=== PATIENT | male | born 1975 | race Caucasian/White ===

== ENCOUNTER 2017-07-18 16:58 | Inpatient (IN) | payer OTHER ==
[~2017-07-18] VITALS: Ht 177.8 cm; Wt 125.2 kg
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
[2017-07-18] MEDS ORDERED: SODIUM CHLORIDE 0.9% 1000ML 1,000 ML IV STA (21:59)
[2017-07-18] MEDS ORDERED: HYDROCODONE/APAP 5MG-325MG TAB PO ONE (22:30)
[2017-07-18 22:43] LABS: BASOPHILS # (AUTO) 0.1 (0.0-0.1); BASOPHILS % 0.7 % (0.0-1.0); EOSINOPHILS # (AUTO) 0.2 (0.0-0.4); HEMATOCRIT 48.6 % (38.2-49.6); LYMPHOCYTES # (AUTO) 2.6 (1.0-3.2); LYMPHOCYTES % 24.9 % (18.0-39.1); MEAN CORPUSCULAR HEMOGLOBIN 29.1 pg (28-32); MEAN CORPUSCULAR VOLUME 83.1 fL (81-99); MONOCYTES # (AUTO) 0.8 (0.2-0.8); MONOCYTES % 7.7 % (4.4-11.3); NEUTROPHILS # (AUTO) 6.7 (2.1-6.9); PLATELET COUNT 204 x10e3/uL (140-360); RED BLOOD COUNT 5.85 x10e6/uL (4.3-5.7); RED CELL DISTRIBUTION WIDTH 11.9 % (11.7-14.4)
[2017-07-18 22:52] LABS: INR 0.86; PROTHROMBIN TIME 12.1 seconds (11.9-14.5)
[2017-07-18 22:53] LABS: PARTIAL THROMBOPLASTIN TIME 26.1 seconds (23.8-35.5)
[2017-07-18 23:02] LABS: ALANINE AMINOTRANSFERASE 24 IU/L (0-55); ALBUMIN 3.8 g/dL (3.5-5.0); ALBUMIN/GLOBULIN RATIO 0.9 (0.8-2.0); ALKALINE PHOSPHATASE 109 IU/L (40-150); ANION GAP 14.6 mmol/L (8-16); BLOOD UREA NITROGEN 15 mg/dL (7-26); BUN/CREATININE RATIO 16 (6-25); CALCIUM 9.6 mg/dL (8.4-10.2); CARBON DIOXIDE 26 mmol/L (22-29); CHLORIDE 101 mmol/L (98-107); CREATININE, SERUM 0.93 mg/dL (0.72-1.25); EST GLOMERULAR FILTRATION RATE > 60 ML/MIN (60-); GLUCOSE 367 mg/dL (74-118); POTASSIUM 3.6 mmol/L (3.5-5.1); SODIUM 138 mmol/L (136-145)
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
[2017-07-19] MEDS ORDERED: SODIUM CHLORIDE 0.9% 1000ML 1,000 ML IV SCH (00:27)
[2017-07-19] MEDS ORDERED: ONDANSETRON HCL INJ 2 MG/ML VIAL IV PRN (00:30)
[2017-07-19] MEDS ORDERED: CLONIDINE HCL 0.1 MG TAB PO ONE (00:30)
[2017-07-19] MEDS ORDERED: DEXTROSE 50% SYRINGE 50 ML IV PRN ×2 (00:30→07:30)
[2017-07-19] MEDS ORDERED: MORPHINE SULFATE 2 MG/ML SYR IV PRN (00:30)
[2017-07-19] MEDS ORDERED: VANCOMYCIN 1GM/NS 250 ML 250 ML IV SCH ×2 (01:00→14:00)
[2017-07-19 01:29] LABS: BILIRUBIN,URINE NEGATIVE (NEGATIVE); KETONES,URINE NEGATIVE (NEGATIVE); LEUKOCYTE ESTERASE ,URINE 2+ (NEGATIVE); NITRITE,URINE NEGATIVE (NEGATIVE); URINE UROBILINOGEN 0.2 mg/dL (0.2 - 1)
[2017-07-19 01:32] LABS: CLARITY,URINE CLOUDY (CLEAR); COLOR,URINE YELLOW (YELLOW); PROTEIN,URINE DIPSTICK 2+ (NEGATIVE)
[2017-07-19 01:37] LABS: BACTERIA,URINE MANY /HPF; EPITHELIAL CELLS,URINE FEW /LPF; WBC,URINE (MAN) >50 /HPF (0-5)
[2017-07-19] MEDS: PIPER-TAZ 3.375 GM 50 ML IV SCH ×4 (01:49→18:00)
[2017-07-19] MEDS ORDERED: IOPAMIDOL 370 MG/ML 200 ML INFUS..BTL INJ ONE (02:11)
[2017-07-19] MEDS ORDERED: SODIUM CHLORIDE 0.9% 50ML 50 ML ONE (02:11)
[2017-07-19] MEDS ORDERED: INSULIN REGULAR, HUMAN 100 UNIT/1 ML 3ML VIAL SQ SCH (07:30)
[2017-07-19] MEDS: MORPHINE SULFATE 2 MG/ML SYR IV PRN ×2 (07:35→12:21)
[2017-07-19] MEDS: ONDANSETRON HCL INJ 2 MG/ML VIAL IV PRN ×2 (08:32→12:22)
[2017-07-19] MEDS: INSULIN REGULAR, HUMAN 100 UNIT/1 ML 3ML VIAL SQ SCH ×4 (09:25→21:18)
[2017-07-19] MEDS: SODIUM CHLORIDE 0.9% 1000ML 1,000 ML IV SCH ×3 (09:45→23:48)
--- NOTE | 2017-07-19 16:55 | Consultation ---
DATE OF CONSULTATION: July 19, 2017 CHIEF COMPLAINT: Right breast pain. HPI: The patient is a 42-year-old male with 5-day history of right breast swelling, redness and tenderness with subjective fever but no chills. No nausea or vomiting. The patient had no previous episode. PAST MEDICAL HISTORY: Positive for diabetes. ALLERGIES: NO KNOWN DRUG ALLERGIES. SOCIAL HABITS: He does not smoke or drink. PAST SURGICAL HISTORY: Negative. PHYSICAL EXAMINATION VITALS: Stable, afebrile. GENERAL: Patient is awake, alert, in moderate discomfort. HEENT: Sclerae are nonicteric. NECK: Supple. LUNGS: Clear to auscultation. HEART: Regular rate and rhythm with no murmurs. ABDOMEN: Soft, nontender. RIGHT BREAST: Tender behind the left nipple with a palpable mass approximately 4 cm, which is tender to touch. CT scan showed retroareolar abscess. ASSESSMENT: Right breast abscess. PLAN: Incision and drainage under anesthesia. Attendant risks discussed. Job#: [id number]
[2017-07-19] MEDS ORDERED: BUPIVACAINE 0.25% 30ML SDV INJ ONE (16:57)
[2017-07-19] MEDS ORDERED: BACITRACIN 50,000 UNIT VIAL ONE (16:58)
[2017-07-19] MEDS ORDERED: PROPOFOL IV EMULSION 10 MG/ML 20 ML VIAL ONE (17:56)
[2017-07-19] MEDS ORDERED: ONDANSETRON HCL INJ 2 MG/ML VIAL ONE (17:56)
[2017-07-19] MEDS ORDERED: SEVOFLURANE INHAL SOLN 250 ML PEN BTL ONE (17:56)
[2017-07-19] MEDS ORDERED: LIDOCAINE HCL 2% LOCAL INJ 5 ML SDV VIAL INJ ONE (17:56)
[2017-07-19] MEDS ORDERED: MIDAZOLAM HCL 2 MG/2 ML VIAL ONE (18:33)
[2017-07-19] MEDS ORDERED: FENTANYL CITRATE/PF 100MCG/2 ML INJ ONE (18:33)
[2017-07-19] MEDS ORDERED: MORPHINE SULFATE 5 MG/ML VIAL ONE (18:36)
[2017-07-19] MEDS ORDERED: ENALAPRILAT IV INJ 1.25 MG/ML VIAL IV PRN (18:45)
[2017-07-19] MEDS ORDERED: LACTATED RINGER'S 1,000 ML IV ONE (18:45)
[2017-07-19] MEDS ORDERED: ACETAMINOPHEN/CODEINE 300MG - 30MG TAB PO PRN (18:45)
[2017-07-19] MEDS ORDERED: MORPHINE SULFATE 5 MG/ML VIAL IV PRN (18:45)
[2017-07-19 20:30] VITALS: BP 170/96
[2017-07-19] MEDS: MORPHINE SULFATE 5 MG/ML VIAL IV PRN (23:49)
[2017-07-20] VITALS (7 sets, daily range): BP systolic 131–168; BP diastolic 73–98
[2017-07-20] MEDS ORDERED: HYDRALAZINE HCL 20 MG/ML VIAL IV PRN
[2017-07-20] MEDS: PIPER-TAZ 3.375 GM 50 ML IV SCH ×4 (00:25→18:18)
--- NOTE | 2017-07-20 01:35 | History and Physical ---
CHIEF COMPLAINT: Right breast abscess. HISTORY: This is a 42-year-old male with a 5-day history of right breast swelling, redness, and tenderness that developed into an abscess. The patient has fever, but no chills. He has no nausea or vomiting. The patient has no previous episode. Apparently, he has diabetes type 2 for the past years or so, he is noncompliant due to financial restraint. Patient is now developing infection and therefore he came to the emergency room for evaluation. PAST MEDICAL HISTORY: Diabetes, noncompliant. SURGICAL HISTORY: Noncontributory. SOCIAL HISTORY: Patient does not smoke or use alcohol. No recreational drug use. ALLERGIES: NO KNOWN ALLERGIES. HOME MEDICATIONS: None. REVIEW OF SYSTEMS: Right breast pain, swelling, redness. PHYSICAL EXAMINATION: VITAL SIGNS: Temperature is 100, blood pressure 195/94, pulse rate 101, respirations 18. GENERAL: The patient is well nourished and obese. HEENT: Normocephalic, atraumatic. Sclerae anicteric. NECK: Grossly supple. No JVD, carotid bruit, or lymphadenopathy. PULMONARY: Diminished breath sounds bilaterally without any gross wheezes or rales. CARDIOVASCULAR: S1 and S2. Regular rate and rhythm. ABDOMEN: Soft, obese. EXTREMITIES: No cyanosis or edema. NEURO No focal deficit. Right breast abscess, redness, and induration of the nipple. There is phlegmon. Tender to touch. LABORATORY: WBC is 10.4, hemoglobin 17, hematocrit 49, platelets 204,000. Chemistry: Sodium is 138, potassium 3.6, chloride 101, bicarb 26, BUN is 15, creatinine 0.9, glucose is 367. Urinalysis, 2+ leukocyte esterase, greater than 50 WBCs. Coagulation normal. IMAGING: The chest CT scan showed 3 cm right breast retroareolar abscess. IMPRESSION: 1. A 3 cm right breast retroareolar abscess. 2. Uncontrolled diabetes type 2, requiring insulin treatment. 3. Morbid obesity. 4. Hypertension. PLAN: Continue with antibiotics. Consultation with surgery. The patient will need abscess of the breast drainage. Patient is otherwise stable at this time. Will continue antibiotics and monitor the patient closely. Job#: [id number]
--- NOTE | 2017-07-20 01:47 | Operative Report ---
DATE OF PROCEDURE: July 19, 2017 PREOPERATIVE DIAGNOSIS: Right breast abscess. POSTOPERATIVE DIAGNOSIS: Right breast abscess. OPERATIVE PROCEDURE: Incisional drainage of right breast abscess. BAR TACKER SEWING MACHINE: None. ANESTHESIA: General endotracheal. INDICATIONS: A 42-year-old male with 5-day history of right breast swelling and tenderness with abscess seen on CT of the chest. Patient consented for incision and drainage with all attendant risks discussed. PROCEDURE FINDINGS: Large right retroareolar breast abscess. DESCRIPTION: The patient brought to the OR intubated. The right chest is prepped with alcohol and draped in sterile fashion. Local anesthesia of 0.5% Marcaine injected into the projected site of incisional drainage. A 3-cm incision is made approximately from 6 to 9 o'clock position just below the areolar border extending through skin and subcutaneous tissue. With blunt and sharp dissection, the abscess cavity is entered and a large amount of purulent fluid is encountered and specimen obtained for culture and sensitivity. The cavity is further explored using hemostat to break up all loculations, and the cavity is then irrigated and packed with iodoform gauze. Hemostasis achieved. Dressing applied. The patient tolerated the procedure well, extubated, and transported to recovery room in guarded condition. ESTIMATED BLOOD LOSS: 5 mL. Job#: [id number]
[2017-07-20] MEDS: VANCOMYCIN 1GM/NS 250 ML 250 ML IV SCH ×2 (02:59→15:00)
[2017-07-20] MEDS: AMLODIPINE BESYLATE 10 MG TAB PO SCH (08:00)
[2017-07-20] MEDS: MORPHINE SULFATE 5 MG/ML VIAL IV PRN ×3 (08:01→19:37)
[2017-07-20] MEDS: INSULIN REGULAR, HUMAN 100 UNIT/1 ML 3ML VIAL SQ SCH ×4 (08:08→21:16)
[2017-07-20] MEDS: INS LISP PRO/LISP HUMAN 75/25 100 UNITS/ML VIAL SC SCH ×2 (08:15→18:24)
[2017-07-20] MEDS: METFORMIN HCL 850 MG TAB PO SCH ×2 (08:30→17:56)
[2017-07-20] MEDS: LISINOPRIL 10 MG TAB PO SCH (13:09)
[2017-07-21] VITALS: BP 131/77
[2017-07-21] MEDS: VANCOMYCIN 1GM/NS 250 ML 250 ML IV SCH (03:43)
[2017-07-21] MEDS: MORPHINE SULFATE 5 MG/ML VIAL IV PRN ×2 (03:50→09:40)
[2017-07-21 04:00] VITALS: BP 113/79
[2017-07-21] MEDS: PIPER-TAZ 3.375 GM 50 ML IV SCH ×3 (05:26→12:13)
[2017-07-21] MEDS: INSULIN REGULAR, HUMAN 100 UNIT/1 ML 3ML VIAL SQ SCH ×2 (07:30→12:13)
[2017-07-21 07:45] VITALS: BP 113/79
[2017-07-21 08:17] VITALS: BP 136/74
[2017-07-21] MEDS: METFORMIN HCL 850 MG TAB PO SCH (08:33)
[2017-07-21] MEDS: INS LISP PRO/LISP HUMAN 75/25 100 UNITS/ML VIAL SC SCH (08:34)
[2017-07-21] MEDS: AMLODIPINE BESYLATE 10 MG TAB PO SCH (08:34)
[2017-07-21] MEDS: LISINOPRIL 10 MG TAB PO SCH (08:35)
[2017-07-21 11:49] VITALS: BP 155/76
[2017-07-21] MEDS ORDERED: METFORMIN HCL850 MG PO (12:56)
[2017-07-21] MEDS ORDERED: NORVASC5 MG PO (12:57)
[2017-07-21] MEDS ORDERED: LISINOPRIL10 MG PO (12:57)
[2017-07-21] MEDS ORDERED: HUMULIN 70100 UNIT/1 SQ (12:59)
[2017-07-21] MEDS ORDERED: HUMULIN 70100 UNIT/1 SC (13:00)
[2017-07-21] MEDS ORDERED: CIPRO500 MG PO (13:01)
[2017-07-21] MEDS ORDERED: KEFLEX500 MG PO (13:01)
[2017-07-21] MEDS ORDERED: TYLENOL WITH C1 EACH PO (13:02)
[2017-07-21] MEDS ORDERED: CELEBREX50 MG PO (13:03)
[2017-07-21] MEDS ORDERED: ZOFRAN ODT4 MG PO (13:04)
--- NOTE | 2017-07-21 15:03 | Discharge Summary ---
CONSULTANTS: Dr. Solomon Downs. FINAL DIAGNOSES 1. Right breast abscess, status post incision and drainage. 2. Diabetes type 2 associated with uncontrolled diabetes, glycohemoglobin A1c 11.9 associated with obesity, insulin resistant. 3. Uncontrolled hypertension. 4. Right breast abscess with Citrobacter koseri. SUMMARY: Patient is a 42-year-old male who came in with right breast abscess. The patient status post incision and drainage done to the right breast with packing. Packing instructions given. The patient also has uncontrolled diabetes type 2, glycohemoglobin A1c of 11.9. Patient has not received treatment thoroughly. Matter of fact he was noncompliant because of financial restraint, but now he does have insurance with [employer]. The patient will seek for medical management. He also has uncontrolled blood pressure as well. Currently, the patient is stable. He has received all the education needed. He will go home with the following medications: 1. Cipro 500 mg b.i.d. for 10 days. 2. Keflex 500 mg t.i.d. for 10 days. 3. Tylenol No. 3 for pain. 4. Celebrex 100 mg b.i.d. for 15 days for pain and inflammation. 5. Zofran ODT 4 mg sublingual p.r.n. 6. Metformin 850 mg twice a day, I gave the patient 1 month and he needs to follow up for any refill. 7. Norvasc 10 mg daily. 8. Lisinopril 10 mg daily. 9. Humulin 70/30, 35 units before breakfast and 30 units before supper, giving 3 vials. He also received insulin syringes with needle. The patient is instructed clearly that he needs to follow up with Dr. Downs next week and with a primary care physician of his choice or he can follow me, but he needs to call my office for insurance verification. The patient is stable, discharged home. Follow up as planned and continue to monitor his blood sugar on a closely basis and adjust his insulin as an outpatient pending on his diet. ADA diet recommended, weight loss, and overall compliance to his treatment. Job#: [id number] LESTER
== END 2017-07-21 14:20 | disposition home or self-care (01) | DRG 585 ==
LOC: RAD 16:58 → UNDOADMIN 07-19 01:17 → ERHOLD 07-19 01:17 → OR 07-19 16:31 → MED/SURG 07-19 18:49
PROVIDERS: ADMIT Internal Medicine; ATTEND Internal Medicine
PROC: 0H9T0ZX Drainage of Right Breast, Open Approach, Diagnostic (ICD-10-PCS; principal; 2017-07-19 17:30)
DX: N61.1 Abscess of the breast and nipple (principal); E11.65 Type 2 diabetes mellitus with hyperglycemia; N64.4 Mastodynia; Z79.4 Long term (current) use of insulin; B96.89 Other specified bacterial agents as the cause of diseases classified elsewhere; Z68.39 Body mass index [BMI] 39.0-39.9, adult; E66.01 Morbid (severe) obesity due to excess calories
CPT/HCPCS: 36415; 71020; 71260; 80053; 81001; 82948; 83036; 83605; 83735; 84443; 85025; 85610; 85730; 87040; 87071; 87075; 87086; 87186; 87205; 96360; 96365; 96372; 99284; J1815; J2001; J2250; J2270; J2405; J2543; J3370; J7030; Q9967

== ENCOUNTER → 2018-01-16 | Outpatient (CLI) | payer OTHER ==
[~2018-01-16] MED LIST: CELEBREX50 MG PO; CIPRO500 MG PO; HUMULIN 70100 UNIT/1 SC; HUMULIN 70100 UNIT/1 SQ; KEFLEX500 MG PO; LISINOPRIL10 MG PO; METFORMIN HCL850 MG PO; NORVASC5 MG PO; TYLENOL WITH C1 EACH PO; ZOFRAN ODT4 MG PO
== END ==
LOC: RAD 14:06
PROVIDERS: ATTEND Family Medicine
DX: R94.31 Abnormal electrocardiogram [ECG] [EKG] (principal)
CPT/HCPCS: 93306

== ENCOUNTER 2018-08-15 14:59 | Inpatient (IN) | payer SELFPAY ==
[~2018-08-15] VITALS: Ht 175.3 cm; Wt 149.7 kg
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
--- NOTE | 2018-08-15 15:20 | NUR ---
NOT IN WAITING ROOM
[2018-08-15] MEDS ORDERED: HYDRALAZINE HCL 20 MG/ML VIAL IV ONE ×2 (15:45→19:15)
[2018-08-15] MEDS ORDERED: VANCOMYCIN 1GM/NS 250 ML 250 ML IV ONE (16:00)
--- NOTE | 2018-08-15 17:25 | Diagnostic Imaging Report ---
EXAMINATION: CHEST SINGLE (PORTABLE) INDICATION: Hypertension ^ERMD ORDER ^Y COMPARISON: CT scan July 18, 2017 FINDINGS: TUBES and LINES: None. LUNGS: Lungs are well inflated. Lungs are clear. There is no evidence of pneumonia or pulmonary edema. PLEURA: No pleural effusion or pneumothorax. HEART AND MEDIASTINUM: The cardiomediastinal silhouette is unremarkable. BONES AND SOFT TISSUES: No acute osseous lesion. Soft tissues are unremarkable. Metallic densities over the left lateral chest. UPPER ABDOMEN: No free air under the diaphragm. IMPRESSION: No acute thoracic abnormality. Signed by: Dr. Juan Luis Johnson M.D. on 08/15/2018 5:22 PM
[2018-08-15] MEDS ORDERED: MORPHINE SULFATE 2 MG/ML SYR 1ML IV STA (17:52)
[2018-08-15] MEDS ORDERED: MORPHINE SULFATE INJ 4 MG/ML INJ 1ML IV STA (17:54)
[2018-08-15 18:47] LABS: BASOPHILS # (AUTO) 0.1 (0.0-0.1); BASOPHILS % 0.4 % (0.0-1.0); EOSINOPHILS # (AUTO) 0.1 (0.0-0.4); EOSINOPHILS % 0.9 % (0.0-6.0); HEMATOCRIT 50.8 % (38.2-49.6); HEMOGLOBIN 17.4 g/dL (14.0-18.0); LYMPHOCYTES # (AUTO) 1.5 (1.0-3.2); MEAN CORPUSCULAR HEMOGLOBIN 28.7 pg (28-32); MEAN CORPUSCULAR HGB CONC 34.3 g/dL (31-35); MEAN CORPUSCULAR VOLUME 83.8 fL (81-99); MONOCYTES # (AUTO) 1.3 (0.2-0.8); MONOCYTES % 9.4 % (4.4-11.3); NEUTROPHILS # (AUTO) 10.7 (2.1-6.9); NEUTROPHILS % 77.9 % (38.7-80.0); PLATELET COUNT 220 x10e3/uL (140-360); RED BLOOD COUNT 6.06 x10e6/uL (4.3-5.7); RED CELL DISTRIBUTION WIDTH 12.2 % (11.7-14.4)
[2018-08-15 18:52] LABS: INR 0.95; PROTHROMBIN TIME 13.5 seconds (11.9-14.5)
[2018-08-15 18:53] LABS: PARTIAL THROMBOPLASTIN TIME 27.8 seconds (23.8-35.5)
[2018-08-15] MEDS ORDERED: ACETAMINOPHEN 325 MG TAB PO ONE (19:00)
[2018-08-15 19:10] LABS: ALANINE AMINOTRANSFERASE 12 IU/L (0-55); ALBUMIN 3.5 g/dL (3.5-5.0); ALBUMIN/GLOBULIN RATIO 0.9 (0.8-2.0); ALKALINE PHOSPHATASE 81 IU/L (40-150); ANION GAP 16.6 mmol/L (8-16); BLOOD UREA NITROGEN 7 mg/dL (7-26); BUN/CREATININE RATIO 8 (6-25); CALCIUM 9.7 mg/dL (8.4-10.2); CARBON DIOXIDE 26 mmol/L (22-29); CHLORIDE 95 mmol/L (98-107); CREATINE KINASE 143 IU/L (30-200); CREATININE, SERUM 0.89 mg/dL (0.72-1.25); EST GLOMERULAR FILTRATION RATE > 60 ML/MIN (60-); GLUCOSE 331 mg/dL (74-118); POTASSIUM 3.6 mmol/L (3.5-5.1); SODIUM 134 mmol/L (136-145)
--- NOTE | 2018-08-15 19:12 | NUR ---
Walking rounds with ISIAH Lopez.
--- NOTE | 2018-08-15 19:32 | NUR ---
received patient in supine position, patient complaints of pain, patient hypertensive when this nurse recieved report, previous nurses before leaving shift asked previous md for more hypertension medication, patient not showing signs of stroke, will continue to monitor
[2018-08-15] MEDS ORDERED: SODIUM CHLORIDE 0.9% 50ML 50 ML ONE (19:49)
[2018-08-15] MEDS ORDERED: IOPAMIDOL 370 MG/ML 200 ML INFUS..BTL INJ ONE (19:49)
--- NOTE | 2018-08-15 20:19 | Diagnostic Imaging Report ---
History:Right eye swelling Comparison studies: None Technique: Axial images were obtained through the facial region. Coronal and sagittal images reconstructed from the axial data. Dose modulation, iterative reconstruction, and/or weight based adjustment of the mA/kV was utilized to reduce the radiation dose to as low as reasonably achievable. Intravenous contrast: 100 cc of Isovue-370. Findings: Soft tissues: Ill-defined inflammatory changes in the right perinasal soft tissues extend towards midline, to the anterior cartilaginous portion of the nasal septum into the right lateral inferior facial soft tissues. An ill-defined, approximately 1.6 cm subcutaneous hypodense fluid collection in the right nasal ala and in the anterior cartilaginous nasal septum (series 4, image 40-41, series 601, image 7 and series 600, images 27 through 30) is consistent with an early abscess. Lymph nodes: Multiple enhancing, noncalcified bilateral submandibular measure between 0.7 and 1.6 cm. One on each side are minimally necrotic (series 4, images 61 and 65). Additional subcentimeter, nonnecrotic in the partially visualized suprahyoid jugular chain are nonspecific. Bones: No fractures or bony abnormalities. Orbits: Globes: Intact. Extra or intraconal abnormalities: None. Paranasal sinuses: Mild scattered nonobstructing mucosal thickening. IMPRESSION: 1. Acute right perinasal superficial cellulitis is associated with an ill defined early abscess, which centered in the right nasal ala, focally extends into the anterior cartilaginous nasal septum (series 4, image 40-41, series 601, image 7 and series 600, images 27 through 30). 2. Reactive predominantly nonnecrotic bilateral submandibular adenopathy. 3. Otherwise, no additional acute maxillofacial abnormalities. Signed by: Dr. Emiliano Herndon M.D. on 08/15/2018 8:15 PM
[2018-08-15] MEDS ORDERED: INSULIN REGULAR, HUMAN 100 UNIT/1 ML 3ML VIAL SQ ONE (21:15)
[2018-08-15] MEDS ORDERED: DEXTROSE 50% SYRINGE 50 ML IV PRN (21:30)
[2018-08-15] MEDS ORDERED: MORPHINE SULFATE 2 MG/ML SYR 1ML IV PRN (21:30)
[2018-08-15] MEDS ORDERED: VANCOMYCIN 1GM/NS 250 ML 250 ML IV SCH (21:30)
[2018-08-15] MEDS ORDERED: HYDRALAZINE HCL 20 MG/ML VIAL IV PRN (21:30)
[2018-08-15] MEDS: MORPHINE SULFATE INJ 4 MG/ML INJ 1ML IV PRN (22:56)
[2018-08-16] MEDS: PIPER-TAZ 3.375 GM 50 ML IV SCH ×4 (00:57→16:47)
[2018-08-16] MEDS: MORPHINE SULFATE INJ 4 MG/ML INJ 1ML IV PRN ×5 (03:16→22:00)
[2018-08-16] MEDS: VANCOMYCIN 1GM/NS 250 ML 250 ML IV SCH ×2 (06:58→16:47)
--- NOTE | 2018-08-16 07:02 | NUR ---
WALKING ROUNDS WITH TIFFANI JOYCE
--- NOTE | 2018-08-16 07:31 | History and Physical ---
This is a 43-year-old male that comes in with facial tenderness and pain. HISTORY OF PRESENT ILLNESS: This is . Hawk Fofana who is a diabetic, who has not been taking his medications. Was in his usual state of health until about a couple of days ago. The patient started at work and noticed pain exacerbated and also with increased tenderness and pain on movement. The patient's pain was 10/10 in intensity. The patient came into the ER, and was found to have facial cellulitis and abscess. The patient is admitted for IV antibiotics and also for hyperglycemia and hypertension. PAST MEDICAL HISTORY: History of hypertension, history of hyperlipidemia, history of uncontrolled diabetes mellitus, history of chronic back pain too. SURGICAL HISTORY 1. History of breast abscess in the past. 2. History of apparent laminectomy in the back also. MEDICATIONS: He takes at home are: 1. Acetaminophen with codeine. 2. The patient is on amlodipine 5 mg daily. 3. Celebrex 100 mg daily. 4. Keflex 500 mg 3 times a day. 5. Cipro 500 mg twice a day. 6. Also, the patient is on 70/30 insulin 30 units before each meal. 7. Lisinopril 10 mg daily. 8. Metformin 850 mg daily. REVIEW OF SYSTEMS: Negative for chest pain. No shortness of breath. No nausea, vomiting or diarrhea. Positive for headache. Positive for tenderness in the nose. ALLERGIES: NO KNOWN ALLERGIES. PHYSICAL EXAMINATION GENERAL: The patient is alert and oriented times 3. VITAL SIGNS: Temperature is 99, pulse of 97, blood pressure is 144/87, pulse oximetry of 97%. HEENT: Positive for tenderness and erythema, and also pain in the nasal ala and also in the nasal septum. The patient has pain also spreading into the bilateral facial areas. CV: S1 and S2 normal. Regular rhythm. ABDOMEN: Nontender and nondistended. EXTREMITIES: No clubbing. No cyanosis. No edema. LABORATORY VALUES: White count is 13,000, hemoglobin 17.4, hematocrit 50.8. Chemistry: Sodium 134, potassium is 3.6, BUN 7, creatinine 0.89 with a glucose of 331. Lactic acid was 15.3. Coags are all within normal limits. IMAGING STUDIES: CT shows acute right paranasal superficial cellulitis with early abscess centered in the right nasal ala. Focal extension into the right cartilage of the nasal septum. Reactive bilateral submandibular adenopathy. Otherwise, no acute facial abnormalities. ASSESSMENT: Facial cellulitis with abscess. A consult with Dr. Hagan has been done. Also, a consult with infectious disease will be done. The patient's blood cultures are pending. The patient has been started on intravenous vancomycin and also Zosyn 3.375 mg q.6 h. Will go ahead and check an A1c on this patient also. Restart his home medications, and also continue with current therapy. Further recommendations per clinical course. Will continue monitoring the patient along with consultants. The patient has been explained to about his noncompliance and his need to take medications, and to control his blood sugars. The patient agreed with compliance. Further recommendations per clinical course. Will continue monitoring the patient. Job#: [id number] JACKY
[2018-08-16] MEDS: ONDANSETRON HCL INJ 2MG/ML 2ML 2 MG/ML VIAL IV PRN (07:35)
[2018-08-16] MEDS ORDERED: AMLODIPINE BESYLATE 5 MG TAB PO SCH (09:00)
[2018-08-16] MEDS: INSULIN REGULAR, HUMAN 100 UNIT/1 ML 3ML VIAL SQ SCH ×4 (10:22→19:55)
[2018-08-16] MEDS: AMLODIPINE BESYLATE 10 MG TAB PO SCH (10:27)
[2018-08-16] MEDS: LISINOPRIL 10 MG TAB PO SCH (10:27)
[2018-08-16] MEDS: METFORMIN HCL 850 MG TAB PO SCH ×2 (10:29→16:47)
--- NOTE | 2018-08-16 11:40 | NUR ---
pt noted to be resting comfortably in bed at this time, with eyes closed.
[2018-08-16 12:58] VITALS: BP 163/94
[2018-08-16 13:00] VITALS: BP 163/94
--- NOTE | 2018-08-16 13:00 | NUR ---
Pt received to floor from ER at this time. Pt is aox4 and able to verbalize needs. Pt is here for a cellulitis of the face. Pt is ambulatory. Pt was seen in ER by Dr. Lieberman. 0 s/s of acute distress noted. Pt has consult for Dr. De Los Santos and Dr. Hagan that have been called by community education coordinator.
--- NOTE | 2018-08-16 16:03 | Consultation ---
DATE OF CONSULTATION: REASON FOR CONSULTATION: Abscess and cellulitis of the nose. This patient who is a 43 year old who has a history of diabetes mellitus started having redness and swelling of his nose a week ago. He started to squeeze pus out of it, but it got progressively worse. The patient comes into the hospital where he was being admitted. Was started on IV vancomycin and Zosyn. PAST MEDICAL HISTORY: Diabetes mellitus. PAST SURGICAL HISTORY: Denies. ALLERGIES; NKA. SOCIAL HISTORY: Does not smoke, drug abuse or alcohol abuse. FAMILY HISTORY: Otherwise unremarkable. REVIEW OF SYSTEMS HEENT: There is no headache or visual changes. GI: There is no nausea. No vomiting, no diarrhea. CARDIAC: No arrhythmia. NEURO: No seizure activity. SKIN: There is no rash. PHYSICAL EXAMINATION GENERAL: Naresh omalley is currently alert and oriented. Does not seem to be in acute distress. VITALS: Stable. Currently afebrile. HEENT: He is not icteric. There is redness and swelling. There is erythema involving the whole nose. The erythema is spreading a little bit to the face. NECK: Supple. No JVD. IMPRESSION 1. Cellulitis of the face. 2. Patient with diabetes mellitus. RECOMMENDATIONS: Continue vancomycin and Zosyn. Await the blood cultures. Should he start to drain again, would culture the wound. Will follow with you. Job#: [id number] JACKY
[2018-08-16 16:07] VITALS: BP 132/89
[2018-08-16] MEDS ORDERED: HUMULIN 70/30 VIAL SQ SCH (16:30)
[2018-08-16] MEDS ORDERED: SODIUM CHLORIDE 0.9% 250ML 250 ML ONE (16:39)
--- NOTE | 2018-08-16 19:35 | NUR ---
Patient visited in room during nursing rounds. Patient alert and oriented x3. Nose swollen with notable scabs on tip of nose. and friends at bedside visiting. Pt ambulatory in room prn. Pt aware he is scheduled for Incision and Drainage of nasal abscess tomorrow (08/17/18). Call gaines within reach.
[2018-08-16 20:00] VITALS: BP 153/83
[2018-08-16] MEDS ORDERED: ACETAMINOPHEN 325 MG TAB PO PRN (20:30)
[2018-08-16] MEDS ORDERED: ACETAMINOPHEN 650 MG SUPP PR PRN (20:30)
[2018-08-17] VITALS (8 sets, daily range): BP systolic 124–152; BP diastolic 69–90
[2018-08-17] MEDS: PIPER-TAZ 3.375 GM 50 ML IV SCH ×5 (00:16→23:29)
--- NOTE | 2018-08-17 00:19 | Consultation ---
DATE OF CONSULTATION: August 16, 2018 HOSPITAL CONSULTATION HISTORY OF PRESENT ILLNESS: I was kindly asked to see this 43-year-old man for evaluation of facial cellulitis and early abscess formation. Patient reports a 1-week history of progressive pain and swelling of his nose. He was able to express pus from the tip of his nose with great pain; however, he continues to have progressive pain and swelling and presented to the emergency department for evaluation and treatment. Subsequent admission CT scan showed early abscess centered around the right ala. He was also found to be hyperglycemic. His contributing comorbidities include diabetes and hypertension. PHYSICAL EXAMINATION: The tympanic membranes and external auditory canals are unremarkable. Oral examination is unremarkable. Pharyngeal examination shows redundant folds of hypopharyngeal mucosa, and elongated uvula. There is no palpable cervical adenopathy. The entire nasal dorsum is erythematous and edematous. There is crossing overlying the right nasal ala region and probable fluctuance beneath the area of crust. However, due to the degree of tenderness, the examination was limited. The erythema and edema extend from the ala through the septal columellar region and into the nasal vestibule as well as medially towards the caudal border of the nasal septum. ASSESSMENT: Nasal cellulitis with early abscess formation. PLAN: Incision and drainage. Job#: [id number] CHARANJIT
[2018-08-17] MEDS: MORPHINE SULFATE INJ 4 MG/ML INJ 1ML IV PRN ×4 (02:00→20:00)
[2018-08-17 06:50] LABS: BASOPHILS % 0.2 % (0.0-1.0); EOSINOPHILS # (AUTO) 0.3 (0.0-0.4); EOSINOPHILS % 2.6 % (0.0-6.0); HEMATOCRIT 42.8 % (38.2-49.6); LYMPHOCYTES % 16.1 % (18.0-39.1); MEAN CORPUSCULAR HEMOGLOBIN 28.7 pg (28-32); MEAN CORPUSCULAR HGB CONC 33.9 g/dL (31-35); MEAN CORPUSCULAR VOLUME 84.6 fL (81-99); MONOCYTES # (AUTO) 1.1 (0.2-0.8); MONOCYTES % 9.3 % (4.4-11.3); NEUTROPHILS # (AUTO) 8.7 (2.1-6.9); NEUTROPHILS % 71.5 % (38.7-80.0); PLATELET COUNT 204 x10e3/uL (140-360); RED BLOOD COUNT 5.06 x10e6/uL (4.3-5.7); RED CELL DISTRIBUTION WIDTH 12.2 % (11.7-14.4)
[2018-08-17] MEDS: VANCOMYCIN 1GM/NS 250 ML 250 ML IV SCH (06:50)
[2018-08-17 07:06] LABS: ANION GAP 11.4 mmol/L (8-16); BLOOD UREA NITROGEN 13 mg/dL (7-26); BUN/CREATININE RATIO 16 (6-25); CALCIUM 8.7 mg/dL (8.4-10.2); CARBON DIOXIDE 27 mmol/L (22-29); CHLORIDE 99 mmol/L (98-107); CREATININE, SERUM 0.82 mg/dL (0.72-1.25); EST GLOMERULAR FILTRATION RATE > 60 ML/MIN (60-); GLUCOSE 234 mg/dL (74-118); POTASSIUM 3.4 mmol/L (3.5-5.1); SODIUM 134 mmol/L (136-145)
[2018-08-17 07:19] LABS: HEMOGLOBIN 14.5 g/dL (14.0-18.0)
[2018-08-17] MEDS: INSULIN REGULAR, HUMAN 100 UNIT/1 ML 3ML VIAL SQ SCH ×4 (07:30→20:02)
--- NOTE | 2018-08-17 07:47 | Progress Note ---
DATE: SUBJECTIVE: The patient comes in with uncontrolled diabetes mellitus and also with nasal abscess. An ENT consult with Dr. Hagan has been done. Also, consult with ID has been done. The patient is currently on Zosyn and Vancomycin, also on Metformin, lisinopril and regular insulin and scheduled insulin. The patient complains of pain, about 5 to 10 in intensity, in the nose. Continues with morphine injections as needed. OBJECTIVE VITAL SIGNS: Today, temperature 98.3 with T-max of 100.4, blood pressure is 152/88, pulse of 93. HEENT: Positive for nasal abscess with drainage on the tip of the nose, positive for shift from midline and also with erythema around the nasal area extending into the bilateral facial area too. CVS: S1, S2 normal. Regular rate and rhythm. ABDOMEN: Nontender, nondistended. EXTREMITIES: No clubbing, no cyanosis, no edema. LABORATORIES: Pending this morning. Blood cultures: No growth after 24 hours and yesterday's white count is 14,000. Chemistries are still pending too. Blood cultures are running in the 250s. Hemoglobin A1c was 10.6. ASSESSMENT 1. Uncontrolled diabetes mellitus. 2. Nasal abscess. The patient is scheduled for surgery today. 3. Hypertension. 4. Hyperlipidemia. 5. History of noncompliance and uncontrolled diabetes mellitus. PLAN: Again I and D. Continue with IV antibiotics. Continue with his regular medication. Further recommendations per clinical course. We will continue to monitor the patient along with other consultants. Job#: [id number]
[2018-08-17] MEDS: METFORMIN HCL 850 MG TAB PO SCH ×2 (08:00→16:01)
--- NOTE | 2018-08-17 09:34 | NUR ---
CALLED AND SPOKE WITH DR. SCHROEDER REGARDING PATIENT'S MORNING MEDICATIONS AND INSULIN SLIDING SCALE D/T PATIENT BEING NPO- DR. SCHROEDER INFORMED RN TO CALL ATTENDING. CALLED AND SPOKE WITH DR. ROMERO REGARDING PATIENT BEING NPO AND HIS MORNING MEDICATIONS. DR. ROMERO INFORMED OF PATIENT'S BG OF 209; ORDER RECEIVED TO ADMINISTER HALF THE DOSE OF INSULIN BASED ON SLIDING SCALE THE PATIENT WAITS FOR HIS PROCEDURE AND TO RESUME FULL DOSE DIRECTED POST PROCEDURE. ORDER TO HOLD PO MEDICATIONS.
--- NOTE | 2018-08-17 13:30 | NUR ---
PATIENT OFF THE UNIT FOR PROCEDURE- PATIENT IS IN STABLE CONDITION WITH NO S/S OF RESPIRATORY DISTRESS.
[2018-08-17] MEDS ORDERED: LIDOCAINE 1% W/EPINEPHRINE 20 ML VIAL ONE (13:49)
[2018-08-17] MEDS ORDERED: MUPIROCIN 2% OINT 22 GM TUBE ONE (13:51)
[2018-08-17] MEDS ORDERED: OXYMETAZOLINE HCL 0.05% NAS 1 SPRAY BTL ONE (13:51)
[2018-08-17] MEDS ORDERED: FENTANYL CITRATE/PF 100MCG/2 ML INJ ONE ×2 (14:55→15:25)
[2018-08-17] MEDS ORDERED: DEXAMETHASONE SOD PHOS INJ 4 MG/ML VIAL ONE (15:23)
[2018-08-17] MEDS ORDERED: DESFLURANE 240 ML BTL INH ONE (15:23)
[2018-08-17] MEDS ORDERED: PROPOFOL IV EMULSION 10 MG/ML 20 ML VIAL ONE (15:23)
[2018-08-17] MEDS ORDERED: KETOROLAC TROMETHAMINE 30 MG/ML VIAL ONE (15:23)
[2018-08-17] MEDS ORDERED: SUCCINYLCHOLINE 200 MG/10 ML SYR ONE (15:23)
[2018-08-17] MEDS ORDERED: ONDANSETRON HCL INJ 2MG/ML 2ML 2 MG/ML VIAL ONE (15:23)
[2018-08-17] MEDS: AMLODIPINE BESYLATE 10 MG TAB PO SCH (15:47)
[2018-08-17] MEDS: LISINOPRIL 10 MG TAB PO SCH (15:47)
--- NOTE | 2018-08-17 16:27 | Operative Report ---
DATE OF PROCEDURE: August 17, 2018 PREOPERATIVE DIAGNOSIS: Nasal abscess. POSTOPERATIVE DIAGNOSIS: Nasal abscess. OPERATION PERFORMED: Incision and drainage of nasal abscess. ANESTHESIA: General endotracheal. ESTIMATED BLOOD LOSS: Less than 10 mL. COMPLICATIONS: None. OPERATIVE FINDINGS: Approximately 2 to 3 mL of pus along the nasal ala. OPERATIVE INDICATIONS: This 43-year-old diabetic presents with a 7-day history of progressive pain and swelling of his nose. He presented to the emergency department where subsequent CT scan demonstrated cellulitis of the nose as well as an early abscess formation over the right ala. Patient was begun on IV antibiotic therapy. He was noted to have crusting over the right nasal ala and probable fluctuance, but due to the degree of tenderness a complete examination could not be performed. The risks, benefits and alternatives to surgical intervention were discussed in detail with the patient, and he gave his informed consent to have this procedure performed. NARRATIVE REPORT: After first obtaining adequate general endotracheal anesthesia and appropriate time out taken, the patient was prepped and draped in the usual fashion. The external nose was injected with 1% lidocaine with epinephrine 1:100,000. A total of 3 mL was used. The patient was then prepped and draped in the usual fashion. The scabbing over the right nasal ala was then removed using Ray-Speedy sponges and Adson forceps. There was pus underneath the scabbing, which was sent for culture and sensitivity and Gram stain. The area of drainage was then further opened using a Magui hemostat. The abscess tract over the nasal ala into the nasal septum and down through the septal cart molar region. The wound was then copiously irrigated. Quarter-inch packing gauze was then placed in the nose. The necrotic tissue of the right nasal alar region was removed and the wound was then packed with quarter-inch packing gauze. Bactroban ointment was applied to the overlying skin and a 4 x4 gauze placed over the external wound. The patient was in satisfactory condition at the termination of the procedure. Job#: [id number] SILVIANO
[2018-08-17] MEDS: HUMULIN 70/30 VIAL SQ SCH (16:30)
--- NOTE | 2018-08-17 18:15 | NUR ---
CALLED AND SPOKE WITH Jeff ERAZO REGARDING PATIENT'S VANCO TROUGH OF 5.9- RECEIVED NEW ORDER TO INCREASE VANCOMYCIN TO 1.5 GRAMS Q12H.
--- NOTE | 2018-08-17 18:30 | NUR ---
Nutrition Screen Note RD Recommendation for Physician: -Continue ADA diet as medically appropriate -Pt refused diet education on 08/17. Plan of Care: RD following, monitoring for tolerance and adequacy Nutrition reason for involvement: Nutrition Risk Trigger MST Primary Diagnose(s): uncontrolled DM, nasal abscess PMH: DM, HLD, HTN, chronic back pain Ht: 69in Wt: 330lb BMI: 48.7kg/m2 IBW: 160lb RD Assessment: (08/17) 43 yo M, who was admitted for facial cellulitis and abscess. Chart reviewed. Labs and meds reviewed. HbA1c at 10.6%. Visited pt in the room. Pt was sleeping; girlfriend presented on bedside to provide hx. Per girlfriend, pt has not been compliant with diet and medication. She stated that pt drank multiple bottles of soda and sugary beverages at home. Pt also didnt take his medications. Pt has gone through diabetic education in the past but not following any given diet instructions. Regino gaines was noted on bedside. RD explained the consequences of uncontrolled diabetes and given handouts on carbohydrate counting. Will continue to monitor and follow. Current Diet: ADA diet Malnutrition Evaluation (date of eval) The patient does not meet criteria for a specified degree of malnutrition at this time. Will re-evaluate at follow-up as appropriate. Diet Education Needs Assessment: Diet education indicated, pt is not interested. Handout was given to girlfriend on bedside. Nutrition Care Level: low Signed: Marija Whyte MS, RD, LD
[2018-08-17] MEDS: VANCOMYCIN HCL 1.5 GM in SODIUM CHLORIDE 0.9% 250ML 300 ML IV SCH (18:34)
--- NOTE | 2018-08-17 18:47 | NUR ---
PATIENT IS IN STABLE CONDITION WITH NO S/S OF RESPIRATORY DISTRESS. NO PAIN VOICED. IV ANTIBIOTIC INFUSING. DRESSING APPLIED TO NOSE. CALL LIGHT IS WITHIN REACH, PATIENT INSTRUCTED TO CALL FOR ASSISTANCE NEEDED. REPORT GIVEN TO ONCOMING NURSE.
--- NOTE | 2018-08-17 19:15 | NUR ---
patient recieved awake, alert, lying quietly in bed. no c/o pain noted. dressing to nose dry and intact with minimal drainage noted. iv out at this time due to redness/swelling. iv to be restarted. pm assessment complete. patient instructed to call for assistance when needed.
[2018-08-17] MEDS: ONDANSETRON HCL INJ 2MG/ML 2ML 2 MG/ML VIAL IV PRN (20:00)
--- NOTE | 2018-08-17 20:00 | NUR ---
iv to left ac d/c'd. new iv #20 gauge iv placed to right wrist x 1 stick. patient medicated with morphine 4 mg and zofran 4 mg ivp for c/o pain 01/16 to nasal area. will continue to monitor.
[2018-08-18] VITALS (7 sets, daily range): BP systolic 122–162; BP diastolic 69–88
[2018-08-18] MEDS: MORPHINE SULFATE INJ 4 MG/ML INJ 1ML IV PRN ×5 (00:45→22:40)
[2018-08-18] MEDS: ONDANSETRON HCL INJ 2MG/ML 2ML 2 MG/ML VIAL IV PRN ×2 (00:45→05:20)
--- NOTE | 2018-08-18 00:45 | NUR ---
patient medicated with morphine 4 mg and zofran 4 mg ivp for c/o pain to nasal area 01/16. will continue to monitor. small amount of drainage noted to dressing to nose. drainage remains unchanged.
[2018-08-18] MEDS: PIPER-TAZ 3.375 GM 50 ML IV SCH ×3 (05:07→17:42)
[2018-08-18 06:19] LABS: BASOPHILS % 0.2 % (0.0-1.0); EOSINOPHILS # (AUTO) 0.1 (0.0-0.4); EOSINOPHILS % 0.4 % (0.0-6.0); HEMATOCRIT 41.5 % (38.2-49.6); LYMPHOCYTES # (AUTO) 1.3 (1.0-3.2); MEAN CORPUSCULAR HEMOGLOBIN 28.9 pg (28-32); MEAN CORPUSCULAR HGB CONC 33.7 g/dL (31-35); MEAN CORPUSCULAR VOLUME 85.6 fL (81-99); MONOCYTES # (AUTO) 1.3 (0.2-0.8); MONOCYTES % 8.7 % (4.4-11.3); NEUTROPHILS # (AUTO) 11.7 (2.1-6.9); NEUTROPHILS % 81.3 % (38.7-80.0); PLATELET COUNT 229 x10e3/uL (140-360); RED BLOOD COUNT 4.85 x10e6/uL (4.3-5.7); RED CELL DISTRIBUTION WIDTH 11.9 % (11.7-14.4)
[2018-08-18] MEDS: VANCOMYCIN HCL 1.5 GM in SODIUM CHLORIDE 0.9% 250ML 300 ML IV SCH ×2 (06:21→18:19)
[2018-08-18 06:44] LABS: ANION GAP 15.9 mmol/L (8-16); CARBON DIOXIDE 24 mmol/L (22-29); CHLORIDE 104 mmol/L (98-107); CREATININE, SERUM 1.02 mg/dL (0.72-1.25); EST GLOMERULAR FILTRATION RATE > 60 ML/MIN (60-); GLUCOSE 120 mg/dL (74-118); POTASSIUM 3.9 mmol/L (3.5-5.1); SODIUM 140 mmol/L (136-145)
[2018-08-18 07:12] LABS: BLOOD UREA NITROGEN 20 mg/dL (7-26); BUN/CREATININE RATIO 20 (6-25)
[2018-08-18] MEDS: INSULIN REGULAR, HUMAN 100 UNIT/1 ML 3ML VIAL SQ SCH ×4 (07:30→21:00)
--- NOTE | 2018-08-18 07:41 | NUR ---
PATIENT IS AWAKE AND IS IN STABLE CONDITION WITH NO S/S OF RESPIRATORY DISTRESS. PATIENT RECENTLY RECEIVED PAIN MEDICATION BUT STATES NOSE PAIN IS A 3/10. IV ANTIBIOTIC INFUSING. CALL LIGHT IS WITHIN REACH, PATIENT INSTRUCTED TO CALL FOR ASSISTANCE NEEDED.
[2018-08-18] MEDS: AMLODIPINE BESYLATE 10 MG TAB PO SCH (08:15)
[2018-08-18] MEDS: LISINOPRIL 10 MG TAB PO SCH (08:15)
[2018-08-18] MEDS: METFORMIN HCL 850 MG TAB PO SCH ×2 (08:15→16:45)
--- NOTE | 2018-08-18 13:04 | NUR ---
CALL PLACED OUT TO DR. SCHROEDER TO CLARIFY WOUND CARE ORDERS AND MEDICATION- AWAITING CALLBACK.
[2018-08-18] MEDS: HUMULIN 70/30 VIAL SQ SCH (16:30)
--- NOTE | 2018-08-18 19:23 | NUR ---
PATIENT IS IN STABLE CONDITION WITH NO S/S OF RESPIRATORY DISTRESS. PATIENT STATES NOSE PAIN LEVEL 3/10 AT THIS TIME. IV ANTIBIOTIC INFUSING. CALL LIGHT IS WITHIN REACH, PATIENT INSTRUCTED TO CALL FOR ASSISTANCE NEEDED. REPORT GIVEN TO ONCOMING NURSE.
[2018-08-18] MEDS: MUPIROCIN 2% OINT 22 GM TUBE TOP SCH (22:00)
[2018-08-19] VITALS (8 sets, daily range): BP systolic 129–139; BP diastolic 76–99
--- NOTE | 2018-08-19 05:36 | NUR ---
Received patient, AAO x 3, laying in bed with HOB slightly elevated. No acute distress noted. Patient reports of no pain at this time. Bed at low position and locked. Bed alarm on. Call light within reach. Will continue to monitor.
--- NOTE | 2018-08-19 06:40 | NUR ---
Received a call from Lab with Vanc trough level at 13.8, Dr. De Los Santos paged with Vanc trough level information.
[2018-08-19] MEDS: MUPIROCIN 2% OINT 22 GM TUBE TOP SCH ×3 (06:51→22:00)
[2018-08-19] MEDS: PIPER-TAZ 3.375 GM 50 ML IV SCH ×2 (06:53)
[2018-08-19] MEDS ORDERED: SODIUM CHLORIDE 0.9% 250ML 250 ML ONE (06:58)
[2018-08-19] MEDS: VANCOMYCIN HCL 1.5 GM in SODIUM CHLORIDE 0.9% 250ML 300 ML IV SCH ×2 (07:12→18:08)
[2018-08-19] MEDS: INSULIN REGULAR, HUMAN 100 UNIT/1 ML 3ML VIAL SQ SCH ×4 (07:30→20:45)
--- NOTE | 2018-08-19 07:35 | NUR ---
PATIENT IS IN STABLE CONDITION WITH NO S/S OF RESPIRATORY DISTRESS. PATIENT DENIES PAIN. IV ANTIBIOTIC INFUSING. DRESSING TO NOSE IS DRY AND INTACT. FAMILY MEMBER PRESENT IN ROOM. CALL LIGHT IS WITHIN REACH, PATIENT INSTRUCTED TO CALL FOR ASSISTANCE NEEDED.
--- NOTE | 2018-08-19 07:57 | NUR ---
RECEIVED CALL FROM LAB REGARDING CRITICAL WOUND CULTURE OF NOSE
--- NOTE | 2018-08-19 08:19 | NUR ---
CALL PLACED OUT TO DR. CANDELARIO REGARDING CRITICAL WOUND CULTURE- AWAITING CALLBACK.
[2018-08-19] MEDS: METFORMIN HCL 850 MG TAB PO SCH ×2 (08:27→17:03)
[2018-08-19] MEDS: MONTELUKAST SODIUM 10 MG TAB PO SCH (08:27)
[2018-08-19] MEDS: AMLODIPINE BESYLATE 10 MG TAB PO SCH (08:29)
[2018-08-19] MEDS: LISINOPRIL 10 MG TAB PO SCH (08:29)
--- NOTE | 2018-08-19 09:22 | NUR ---
PATIENT OFFERED A SHOWER TWICE BY RN AND PCT AND PATIENT REFUSED BOTH TIMES. PATIENT STATED HE HAS NO CLEAN CLOTHES- RN STATED A NEW CLEAN GOWN WOULD BE GIVEN BUT PATIENT REFUSED SHOWER AND NEW GOWN. WATER SPILLED ON PATIENT'S BED/FITTED SHEET DURING BREAKFAST- RN OFFERED TO CHANGE PATIENT'S SHEETS BUT PATIENT STATED "IT'S FINE" AND DID NOT WANT SHEETS TO BE CHANGED.
[2018-08-19] MEDS: MORPHINE SULFATE INJ 4 MG/ML INJ 1ML IV PRN ×3 (10:45→20:49)
[2018-08-19] MEDS: GUAIFENESIN/DEXTROMETHORPHAN LIQD 5 ML UDC NG PRN ×2 (15:29→20:49)
[2018-08-19] MEDS: HUMULIN 70/30 VIAL SQ SCH (16:30)
--- NOTE | 2018-08-19 19:14 | NUR ---
PATIENT IS RESTING IN BED-IN STABLE CONDITION WITH NO S/S OF RESPIRATORY DISTRESS. NO PAIN VOICED. FAMILY MEMBER PRESENT IN ROOM. IV ANTIBIOTIC INFUSING. DRESSING TO NOSE IS DRY AND INTACT. CALL LIGHT IS WITHIN REACH, PATIENT INSTRUCTED TO CALL FOR ASSISTANCE NEEDED. REPORT GIVEN TO ONCOMING NURSE.
--- NOTE | 2018-08-19 19:47 | NUR ---
RECEIVED PT IN BED AOX3 .DRESSING AT THE NOSE DRY AND INTACT .DENIES PAIN .FAMILY AT THE BEDSIDE .CALL LIGHT WITH IN REACH .CONTINUE TO MONITOR
[2018-08-20 00:43] VITALS: BP 159/93
[2018-08-20] MEDS: MORPHINE SULFATE INJ 4 MG/ML INJ 1ML IV PRN ×4 (01:05→18:15)
[2018-08-20 05:53] VITALS: BP 148/79
[2018-08-20] MEDS: MUPIROCIN 2% OINT 22 GM TUBE TOP SCH ×3 (06:00→22:00)
[2018-08-20] MEDS: VANCOMYCIN HCL 1.5 GM in SODIUM CHLORIDE 0.9% 250ML 300 ML IV SCH ×2 (06:30→18:18)
--- NOTE | 2018-08-20 07:22 | Progress Note ---
DATE: SUBJECTIVE: This patient came in with nasal abscess, status post I and D done on the . Patient is currently asymptomatic, complains of pain, but very much reduced compared to what it was. PHYSICAL EXAMINATION: VITAL SIGNS: Temperature is 98.2, afebrile, pulse oximetry 98%, respiration of 18, blood pressure is 148/78. GENERAL: Alert and oriented x3. No complaints. Patient wants to go home. HEENT: Positive for nose being packed. CVS: S1 and S2 normal. ABDOMEN: Nontender, nondistended. EXTREMITIES: No clubbing, no cyanosis, no edema. LABORATORY VALUES: White count is 14,000, hemoglobin of 14, hematocrit of 41.2, neutrophil count was 81.3. MICROBIOLOGY: Shows Staph aureus on culture sensitive to vancomycin and also is resistant to penicillins. Patient is currently on vancomycin, has been adjusted. Medications otherwise patient is getting are mupirocin nasal cream, metformin 850 mg, lisinopril 10 mg, hydralazine 10 mg IV as needed, and also insulin sliding scale. ASSESSMENT: 1. Methicillin-resistant Staphylococcus aureus. 2. Nose abscess, status post incision and drainage. PLAN: Continue to monitor the patient. Further recommendations on clinical course. Will continue observation along with railroad design consultant. Job#: [id number]
[2018-08-20] MEDS: GUAIFENESIN/DEXTROMETHORPHAN LIQD 5 ML UDC NG PRN (07:27)
--- NOTE | 2018-08-20 07:29 | NUR ---
PTC/O PAIN AND GIVEN MORPHINE .CHANGED THE DRESSING X2 FAMILY AT THE BEDSIDE .CALL LIGHT WITH IN REACH .REPORT GIVEN TO THE ONCOMING NURSE
[2018-08-20] MEDS: INSULIN REGULAR, HUMAN 100 UNIT/1 ML 3ML VIAL SQ SCH ×4 (07:30→21:00)
[2018-08-20 08:00] VITALS: BP 147/83
[2018-08-20] MEDS: METFORMIN HCL 850 MG TAB PO SCH ×2 (08:40→17:07)
[2018-08-20] MEDS: AMLODIPINE BESYLATE 10 MG TAB PO SCH (08:41)
[2018-08-20] MEDS: LISINOPRIL 10 MG TAB PO SCH (08:41)
[2018-08-20] MEDS: MONTELUKAST SODIUM 10 MG TAB PO SCH (08:41)
[2018-08-20 12:00] VITALS: BP 167/93
--- NOTE | 2018-08-20 12:09 | NUR ---
GAVE PACKET OF INFORMATION WITH COMM[employer]ITY [employer] FOR ASSISTANCE WITH LOW TO NO INCOME TO PATIENT. RESOURCES THAT PATIENT MAY BE ABLE TO FOLLOW UP UPON DISCHARGE. PT EDUCATED ON EACH RESOURCE AND UNDERSTANDING HOW TO FOLLOW UP TO SEE IF QUALIFIED FOR EACH RESOURCE.
[2018-08-20 16:00] VITALS: BP 148/80
[2018-08-20] MEDS: HUMULIN 70/30 VIAL SQ SCH (17:06)
--- NOTE | 2018-08-20 19:41 | NUR ---
PT RESTING DENIES PAIN AT THIS TIME FAMILY AT THE BEDSIDE .VANCOMYCIN INFUSING .CALL LIGHT WITH IN REACH .CONTINUE TO MONITOR
[2018-08-20 20:00] VITALS: BP 160/88
[2018-08-21] VITALS: BP 163/85
[2018-08-21 00:45] VITALS: BP 160/88
[2018-08-21] MEDS: MORPHINE SULFATE INJ 4 MG/ML INJ 1ML IV PRN ×3 (01:06→10:25)
[2018-08-21] MEDS: GUAIFENESIN/DEXTROMETHORPHAN LIQD 5 ML UDC NG PRN (03:30)
[2018-08-21 04:00] VITALS: BP 161/95
[2018-08-21] MEDS: MUPIROCIN 2% OINT 22 GM TUBE TOP SCH ×2 (05:33→14:05)
[2018-08-21 06:22] LABS: BASOPHILS # (AUTO) 0.1 (0.0-0.1); BASOPHILS % 0.6 % (0.0-1.0); EOSINOPHILS # (AUTO) 0.1 (0.0-0.4); HEMATOCRIT 45.3 % (38.2-49.6); HEMOGLOBIN 15.5 g/dL (14.0-18.0); LYMPHOCYTES # (AUTO) 1.9 (1.0-3.2); MEAN CORPUSCULAR HEMOGLOBIN 28.9 pg (28-32); MEAN CORPUSCULAR HGB CONC 34.2 g/dL (31-35); MEAN CORPUSCULAR VOLUME 84.4 fL (81-99); MONOCYTES # (AUTO) 0.9 (0.2-0.8); MONOCYTES % 9.2 % (4.4-11.3); NEUTROPHILS # (AUTO) 7.3 (2.1-6.9); NEUTROPHILS % 70.6 % (38.7-80.0); PLATELET COUNT 251 x10e3/uL (140-360); RED BLOOD COUNT 5.37 x10e6/uL (4.3-5.7); RED CELL DISTRIBUTION WIDTH 11.9 % (11.7-14.4)
[2018-08-21 06:52] LABS: ANION GAP 14.8 mmol/L (8-16); BLOOD UREA NITROGEN 12 mg/dL (7-26); BUN/CREATININE RATIO 14 (6-25); CALCIUM 9.4 mg/dL (8.4-10.2); CARBON DIOXIDE 27 mmol/L (22-29); CHLORIDE 99 mmol/L (98-107); CREATININE, SERUM 0.87 mg/dL (0.72-1.25); EST GLOMERULAR FILTRATION RATE > 60 ML/MIN (60-); GLUCOSE 108 mg/dL (74-118); POTASSIUM 3.8 mmol/L (3.5-5.1); SODIUM 137 mmol/L (136-145)
--- NOTE | 2018-08-21 07:08 | NUR ---
RECEIVED PATIENT RESTING IN BED. NO ACUTE DISTRESS NOTED. CALL LIGHT WITHIN REACH. BED IN THE LOWEST POSITION.
[2018-08-21] MEDS: VANCOMYCIN HCL 1.5 GM in SODIUM CHLORIDE 0.9% 250ML 300 ML IV SCH (07:17)
--- NOTE | 2018-08-21 07:29 | NUR ---
PT RESTED DURING THE NIGHT .DRESSING CHANGED .C/O PAIN AND GIVEN MORPHINE .FAMILY AT THE BEDSIDE .REPORT GIVEN TO THE ON COMING NURSE
[2018-08-21 07:30] VITALS: BP 143/92
[2018-08-21] MEDS: INSULIN REGULAR, HUMAN 100 UNIT/1 ML 3ML VIAL SQ SCH ×2 (07:30→11:30)
--- NOTE | 2018-08-21 07:32 | Progress Note ---
DATE: SUBJECTIVE: This patient is here for nasal cellulitis and abscess, status post incision and drainage. Patient's pain is controlled. Packing is present. The patient was repacked yesterday. Currently, the patient is on vancomycin, mupirocin for local care, and his regular medications which include lisinopril, hydralazine, and amlodipine for blood pressure control. OBJECTIVE GENERAL: The patient is alert and oriented x3. VITAL SIGNS: Temperature is 98.5, pulse 84, blood pressure 161/95, pulse oximetry 97%. HEENT: Normocephalic. Patient's nose is packed and has mupirocin ointment on it. The erythema and redness have come down considerably. CVS: S1 and S2, normal rate and rhythm. ABDOMEN: Nontender, nondistended. EXTREMITIES: No clubbing, no cyanosis, no edema. MICROBIOLOGY: As noted, MRSA sensitive to vancomycin. LABORATORY VALUES: Today's white count is 10.26, hemoglobin 15.5, hematocrit 45.3. ASSESSMENT 1. Nasal cellulitis with abscess. 2. Methicillin-resistant Staphylococcus aureus of nose. 3. Hypertension. 4. Hyperlipidemia. 5. Diabetes mellitus. 6. Obesity. PLAN: Continue with local care. The patient's white count has come down. MRSA sensitive to Bactrim. Can be discharged home on Bactrim if okay with ID and ENT. Further recommendations and local care. Further recommendations per clinical course. The patient's blood pressure will be monitored and will increase his lisinopril today to 20 mg. Job#: [id number]
[2018-08-21 08:00] VITALS: BP 143/92
[2018-08-21] MEDS ORDERED: SODIUM CHLORIDE 0.9% 250ML 250 ML ONE (08:57)
[2018-08-21] MEDS ORDERED: LISINOPRIL 20 MG TAB PO SCH (09:00)
[2018-08-21] MEDS: AMLODIPINE BESYLATE 10 MG TAB PO SCH (09:06)
[2018-08-21] MEDS: METFORMIN HCL 850 MG TAB PO SCH (09:06)
[2018-08-21] MEDS: MONTELUKAST SODIUM 10 MG TAB PO SCH (09:07)
[2018-08-21 11:52] VITALS: BP 140/87
--- NOTE | 2018-08-21 14:52 | NUR ---
RECEIVED DC ORDER FROM MD. PATIENT IS IN STABLE CONDITION. IV LINE TO LEFT FOREARM DC'D WITH TIP INTACT, PRESSURE APPLIED TO SITE, NO BLEEDING NOTED. DISCHARGE TEACHING PROVIDED TO PATIENT, HE VERBALIZED UNDERSTANDING. DISCHARGE FOLDER AND ALL PERSONAL ITEMS ON HAND. PATIENT ACCOMPANIED TO PRIVATE AUTO VIA WHEELCHAIR BY STAFF.
== END 2018-08-21 15:00 | disposition home or self-care (01) | DRG 603 ==
LOC: ER 14:59 → ERHOLD 21:24 → MED/SURG3 08-16 12:57
PROVIDERS: ADMIT Family Medicine; ATTEND Family Medicine
PROC: 099 Ear, Nose, Sinus, Drainage (ICD-10-PCS; principal; 2018-08-17 07:30)
DX: L03.211 Cellulitis of face (principal); Z68.42 Body mass index [BMI] 45.0-49.9, adult; J01.80 Other acute sinusitis; I10 Essential (primary) hypertension; E78.5 Hyperlipidemia, unspecified; E11.65 Type 2 diabetes mellitus with hyperglycemia; B95.62 Methicillin resistant Staphylococcus aureus infection as the cause of diseases classified elsewhere; E66.9 Obesity, unspecified
CPT/HCPCS: 36415; 70487; 71045; 80048; 80053; 80202; 82550; 82553; 82948; 83036; 83605; 83735; 84484; 85025; 85610; 85730; 87040; 87071; 87075; 87186; 87205; 93005; 99284; J0360; J1100; J1885; J2270; J2405; J2543; J3370; J7050; Q9967

== ENCOUNTER → 2019-05-13 | Emergency (ER) | payer OTHER ==
[~2019-05-13] VITALS: Ht 175.3 cm; Wt 109.3 kg
[2019-05-13 16:18] LABS: BASOPHILS % 0.4 % (0.0-1.0); EOSINOPHILS # (AUTO) 0.3 (0.0-0.4); EOSINOPHILS % 3.5 % (0.0-6.0); HEMATOCRIT 40.3 % (38.2-49.6); HEMOGLOBIN 13.9 g/dL (14.0-18.0); LYMPHOCYTES # (AUTO) 1.9 (1.0-3.2); LYMPHOCYTES % 19.7 % (18.0-39.1); MEAN CORPUSCULAR HGB CONC 34.5 g/dL (31-35); MEAN CORPUSCULAR VOLUME 84.1 fL (81-99); MONOCYTES # (AUTO) 0.7 (0.2-0.8); MONOCYTES % 7.5 % (4.4-11.3); NEUTROPHILS # (AUTO) 6.6 (2.1-6.9); NEUTROPHILS % 68.7 % (38.7-80.0); PLATELET COUNT 195 x10e3/uL (140-360); RED BLOOD COUNT 4.79 x10e6/uL (4.3-5.7); RED CELL DISTRIBUTION WIDTH 11.9 % (11.7-14.4)
[2019-05-13 17:15] LABS: INR 0.92; PROTHROMBIN TIME 12.8 seconds (11.9-14.5)
[2019-05-13 17:16] LABS: PARTIAL THROMBOPLASTIN TIME 27.5 seconds (23.8-35.5)
[2019-05-13 17:22] LABS: ALANINE AMINOTRANSFERASE 25 IU/L (0-55); ALBUMIN 3.7 g/dL (3.5-5.0); ALBUMIN/GLOBULIN RATIO 1.2 (0.8-2.0); ALKALINE PHOSPHATASE 73 IU/L (40-150); ANION GAP 13.7 mmol/L (8-16); BLOOD UREA NITROGEN 26 mg/dL (7-26); BUN/CREATININE RATIO 21 (6-25); CARBON DIOXIDE 25 mmol/L (22-29); CHLORIDE 104 mmol/L (98-107); CREATININE, SERUM 1.25 mg/dL (0.72-1.25); EST GLOMERULAR FILTRATION RATE > 60 ML/MIN (60-); GLUCOSE 193 mg/dL (74-118); POTASSIUM 3.7 mmol/L (3.5-5.1); SODIUM 139 mmol/L (136-145)
--- NOTE | 2019-05-13 21:51 | NUR ---
PICC tip is in the SVC per radiology report by Dr Meek. PICC is ok to use
--- NOTE | 2019-05-13 22:05 | Diagnostic Imaging Report ---
EXAMINATION: CHEST XRAY LINE PLACEMENT INDICATION: PICC placement. COMPARISON: Chest radiograph 04/25/2019. FINDINGS: TUBES and LINES: Interval placement of right PICC which terminates in the expected location of the upper SVC. Interval removal of left PICC. LUNGS: Lungs are moderately inflated. Mild patchy bibasilar opacities, likely atelectasis. No evidence of lobar consolidation or pulmonary edema. PLEURA: No pleural effusion or pneumothorax. HEART AND MEDIASTINUM: The cardiomediastinal silhouette is unremarkable. BONES AND SOFT TISSUES: No acute osseous abnormality. BBs throughout the left chest and lower neck are stable. UPPER ABDOMEN: No free air under the diaphragm. IMPRESSION: Right-sided PICC terminates in the expected location of the SVC. No evidence of pneumothorax. Signed by: Dr. Rell Meek MD on 05/13/2019 10:01 PM
[2019-05-13 23:22] VITALS: BP 140/93
== END | disposition home or self-care (01) ==
LOC: ER 15:40
DX: T85.9XXA Unspecified complication of internal prosthetic device, implant and graft, initial encounter (principal); I10 Essential (primary) hypertension; E11.9 Type 2 diabetes mellitus without complications
CPT/HCPCS: 36415; 36569; 71045; 80053; 85025; 85610; 85730; 99283

== ENCOUNTER 2019-06-19 19:47 | Emergency (ER) | payer OTHER ==
[~2019-06-19] VITALS: Ht 175.3 cm; Wt 109.3 kg
[2019-06-19 20:20] VITALS: BP 173/109
--- NOTE | 2019-06-19 20:30 | NUR ---
CHANGED PT'S NOBLE BAG.
== END 2019-06-19 20:35 | disposition home or self-care (01) ==
LOC: ER 19:47
DX: Z46.6 Encounter for fitting and adjustment of urinary device (principal); I10 Essential (primary) hypertension; E11.9 Type 2 diabetes mellitus without complications; Z86.14 Personal history of Methicillin resistant Staphylococcus aureus infection
CPT/HCPCS: 99282